=== PATIENT | female | born 1930 | race Caucasian/White ===

== ENCOUNTER 2018-06-03 14:57 | Inpatient (IN) | payer MEDICARE ==
[~2018-06-03] VITALS: Ht 165.1 cm; Wt 50.0 kg
[~2018-06-03 14:57] MED LIST: BUDE10.24 IH; CARV6.252 PO; CITA-278 PO; COU5T PO; DIGO250T PO; DONE5TAB3 PO; FLUT16SP2 NS; OXYB5TAB80 PO; SYN0.025T PO
[2018-06-03] MEDS ORDERED: normal saline 1000ML IV soln IVB ONE (15:30)
[2018-06-03 15:40] LABS: BASOPHILS % (AUTO) 0.3 % (0-1); EOSINOPHILS # (AUTO) 0.3 X10'3 (0-0.9); EOSINOPHILS % (AUTO) 2.7 % (0-6); HEMATOCRIT 42.7 % (35.0-45.0); HEMOGLOBIN 14.2 g/dl (12.0-16.0); LYMPHOCYTES # (AUTO) 1.2 X10'3 (1.1-4.8); LYMPHOCYTES % (AUTO) 12.5 % (21-51); MEAN CORPUSCULAR HEMOGLOBIN 33.1 PG (27.0-31.0); MEAN CORPUSCULAR HGB CONC 33.2 % (33.0-36.5); MEAN CORPUSCULAR VOLUME 99.5 FL (78-98); MEAN PLATELET VOLUME 9.2 FL (7.4-10.4); MONOCYTES # (AUTO) 1.3 X10'3 (0-0.9); MONOCYTES % (AUTO) 13.3 % (2-12); NEUTROPHILS # (AUTO) 6.7 X10'3 (1.8-7.7); NEUTROPHILS % (AUTO) 71.2 % (42-75); PLATELET COUNT 175 X10'3 (140-440); RED BLOOD COUNT 4.29 X10'6 (4.20-5.60); RED CELL DISTRIBUTION WIDTH 14.7 % (11.5-14.5); WHITE BLOOD COUNT 9.4 X10'3 (4.5-11.0)
[2018-06-03 16:01] LABS: INR 2.4 INR; PROTHROMBIN TIME 23.4 SECONDS (9.0-12.0)
[2018-06-03 16:08] LABS: ALANINE AMINOTRANSFERASE 20 U/L (12-78); ALBUMIN 3.2 G/DL (3.4-5.0); ALBUMIN/GLOBULIN RATIO 0.7 (1.1-1.5); ALKALINE PHOSPHATASE 74 IU/L (46-116); ANION GAP 8 (8-16); ASPARTATE AMINO TRANSFERASE 24 U/L (10-37); BLOOD UREA NITROGEN 8 MG/DL (7-18); BUN/CREATININE RATIO 8.9 (6.6-38.0); CALCIUM 9.3 MG/DL (8.5-10.1); CHLORIDE 101 MMOL/L (99-107); GLUCOSE 140 MG/DL (70-104); SODIUM 138 MMOL/L (135-145); TOTAL CARBON DIOXIDE 28.9 MMOL/L (24-32); TOTAL PROTEIN 7.8 G/DL (6.4-8.2); eGFR 59 ML/MIN
[2018-06-03 16:40] LABS: CLARITY,URINE CLOUDY (Clear); COLOR,URINE YELLOW (Yellow); GLUCOSE, URINE NEGATIVE (Neg); KETONES,URINE NEGATIVE (Neg); LEUKOCYTE ESTERASE ,URINE LARGE (Neg); NITRITES, URINE NEGATIVE (Neg); OCCULT BLOOD,URINE SMALL (Neg); PROTEIN,URINE 100 mg/dl (Neg); UROBILINOGEN,URINE 0.2 E.U/dL (0.2-1.0)
[2018-06-03 16:41] LABS: UA COLLECTION TYPE STRAIGHT CATH
[2018-06-03 16:52] LABS: WBC,URINE 50-100 /HPF (0-4)
[2018-06-03 16:53] LABS: BACTERIA,URINE 3+ /HPF (Neg); MUCUS STRANDS NONE SEEN /LPF (Neg); RBC,URINE 0-2 /HPF (0-2); SQUAMOUS EPITHELIAL CELL,UR NONE SEEN /LPF (FEW)
[2018-06-03] MEDS ORDERED: cephalexin 500mg capsule PO ONE (17:15)
[2018-06-03] MEDS ORDERED: CefTRIAXone/D5W-Rocephin 1gm 50 ML IV ONE (17:15)
[2018-06-03] MEDS: normal saline 1000ml 1,000 ML IV SCH ×2 (19:31→21:39)
[2018-06-03] MEDS ORDERED: DIGO125T78 PO (19:39)
[2018-06-03] MEDS ORDERED: COU2.5T PO (19:39)
[2018-06-03] MEDS ORDERED: DONE10TA7 PO (19:39)
[2018-06-03] MEDS ORDERED: OXYB5TAB11 PO (19:39)
[2018-06-03] MEDS ORDERED: MULT-38 PO (19:39)
[2018-06-03] MEDS ORDERED: temazepam 15mg capsule PO PRN (21:00)
[2018-06-03] MEDS ORDERED: normal saline 1000ml 1,000 ML IV SCH (21:42)
[2018-06-03] MEDS ORDERED: HYDROcodone/acetaminophen 10/325mg tab PO PRN (21:45)
[2018-06-03] MEDS ORDERED: acetaminophen 325mg tablet PO PRN ×2 (21:45)
[2018-06-03] MEDS ORDERED: diphenhydrAMINE 25mg capsule PO PRN (21:45)
[2018-06-03] MEDS ORDERED: diphenhydrAMINE 50 mg/ml inj IV PRN (21:45)
[2018-06-03] MEDS ORDERED: bisacodyl 10mg suppository rectal RC PRN (21:45)
[2018-06-03] MEDS ORDERED: ondansetron/PF 4mg/2ml inj IV PRN (21:45)
[2018-06-03] MEDS ORDERED: morphine 2 MG/ML inj. syringe IV PRN (21:45)
[2018-06-03] MEDS ORDERED: metoclopramide 5 mg/ml inj IV PRN (21:45)
[2018-06-03] MEDS ORDERED: acetaminophen 650mg rectal suppository RC PRN (21:45)
[2018-06-03] MEDS ORDERED: HYDROmorphone 1 mg/ml syringe IV PRN (21:45)
[2018-06-03] MEDS ORDERED: mag hydrox/Alum hydrox/simeth 30ml oral suspension PO PRN (21:45)
[2018-06-03] MEDS ORDERED: magnesium hydroxide 30ml (MOM) UD suspension PO PRN (21:45)
[2018-06-03 22:24] LABS: MAGNESIUM 1.9 MG/DL (1.5-2.4); PHOSPHORUS 2.7 MG/DL (2.3-4.5)
[2018-06-04 03:20] VITALS: BP 140/60
[2018-06-04 04:02] LABS: ALANINE AMINOTRANSFERASE 15 U/L (12-78); ALBUMIN/GLOBULIN RATIO 0.7 (1.1-1.5); ALKALINE PHOSPHATASE 80 IU/L (46-116); ANION GAP 10 (8-16); ASPARTATE AMINO TRANSFERASE 23 U/L (10-37); BILIRUBIN,TOTAL 1.2 MG/DL (0.1-1.0); BLOOD UREA NITROGEN 8 MG/DL (7-18); BUN/CREATININE RATIO 9.9 (6.6-38.0); CALCIUM 8.9 MG/DL (8.5-10.1); CHLORIDE 102 MMOL/L (99-107); CREATININE 0.81 MG/DL (0.40-0.90); GLUCOSE 112 MG/DL (70-104); POTASSIUM 3.9 MMOL/L (3.5-5.1); SODIUM 139 MMOL/L (135-145); TOTAL CARBON DIOXIDE 26.8 MMOL/L (24-32); TOTAL PROTEIN 7.3 G/DL (6.4-8.2); eGFR 67 ML/MIN
[2018-06-04 04:04] LABS: LIPASE 131 U/L (73-393)
[2018-06-04 04:31] LABS: BASOPHILS % (AUTO) 0.3 % (0-1); EOSINOPHILS # (AUTO) 0.2 X10'3 (0-0.9); EOSINOPHILS % (AUTO) 2.1 % (0-6); HEMATOCRIT 41.4 % (35.0-45.0); HEMOGLOBIN 13.8 g/dl (12.0-16.0); LYMPHOCYTES # (AUTO) 1.6 X10'3 (1.1-4.8); LYMPHOCYTES % (AUTO) 16.3 % (21-51); MEAN CORPUSCULAR HEMOGLOBIN 33.1 PG (27.0-31.0); MEAN CORPUSCULAR HGB CONC 33.3 % (33.0-36.5); MEAN CORPUSCULAR VOLUME 99.6 FL (78-98); MEAN PLATELET VOLUME 10.5 FL (7.4-10.4); MONOCYTES # (AUTO) 1.6 X10'3 (0-0.9); NEUTROPHILS # (AUTO) 6.4 X10'3 (1.8-7.7); NEUTROPHILS % (AUTO) 65.3 % (42-75); PLATELET COUNT 163 X10'3 (140-440); RED BLOOD COUNT 4.15 X10'6 (4.20-5.60); RED CELL DISTRIBUTION WIDTH 14.8 % (11.5-14.5); WHITE BLOOD COUNT 9.9 X10'3 (4.5-11.0)
[2018-06-04 06:00] VITALS: BP 138/58
[2018-06-04] MEDS: atorvastatin 20mg tablet PO SCH (07:51)
[2018-06-04] MEDS: docusate sod 100mg capsule PO SCH ×2 (07:51→20:18)
[2018-06-04] MEDS: CefTRIAXone/D5W-Rocephin 1gm 50 ML IV SCH ×2 (07:56→20:23)
[2018-06-04 10:00] VITALS: BP 121/57
[2018-06-04] MEDS ORDERED: SYN0.088T PO (10:49)
[2018-06-04] MEDS ORDERED: LEVO50TA8 PO (13:23)
[2018-06-04] MEDS: aspirin 325mg tablet, delayed-release (Ecotrin) PO SCH (14:56)
[2018-06-04] MEDS: Potassium Cl inj 20 MEQ in normal saline 1000ml 990 ML IV SCH (14:58)
[2018-06-04 15:58] LABS: INR 2.4 INR; PROTHROMBIN TIME 22.9 SECONDS (9.0-12.0)
[2018-06-04 18:00] VITALS: BP 138/75
[2018-06-04] MEDS ORDERED: warfarin 2.5mg tablet PO ONE (21:00)
[2018-06-04] MEDS ORDERED: famotidine 20mg tablet PO SCH (21:00)
[2018-06-04] MEDS ORDERED: Potassium Cl inj 20 MEQ in normal saline 1000ml 1,000 ML IV SCH (21:42)
[2018-06-04 22:00] VITALS: BP 138/78
[2018-06-05] MEDS: Potassium Cl inj 20 MEQ in normal saline 1000ml 990 ML IV SCH (04:36)
[2018-06-05 05:00] VITALS: BP 133/70
[2018-06-05 07:58] LABS: BASOPHILS % (AUTO) 0.4 % (0-1); EOSINOPHILS # (AUTO) 0.5 X10'3 (0-0.9); EOSINOPHILS % (AUTO) 4.5 % (0-6); HEMATOCRIT 37.7 % (35.0-45.0); HEMOGLOBIN 12.4 g/dl (12.0-16.0); LYMPHOCYTES # (AUTO) 1.3 X10'3 (1.1-4.8); LYMPHOCYTES % (AUTO) 12.9 % (21-51); MEAN CORPUSCULAR HGB CONC 32.9 % (33.0-36.5); MEAN CORPUSCULAR VOLUME 100.1 FL (78-98); MEAN PLATELET VOLUME 9.8 FL (7.4-10.4); MONOCYTES # (AUTO) 1.7 X10'3 (0-0.9); MONOCYTES % (AUTO) 16.3 % (2-12); NEUTROPHILS # (AUTO) 6.8 X10'3 (1.8-7.7); NEUTROPHILS % (AUTO) 65.9 % (42-75); PLATELET COUNT 143 X10'3 (140-440); RED BLOOD COUNT 3.76 X10'6 (4.20-5.60); RED CELL DISTRIBUTION WIDTH 14.5 % (11.5-14.5); WHITE BLOOD COUNT 10.3 X10'3 (4.5-11.0)
[2018-06-05 08:13] LABS: ALANINE AMINOTRANSFERASE 15 U/L (12-78); ALBUMIN 2.5 G/DL (3.4-5.0); ALBUMIN/GLOBULIN RATIO 0.6 (1.1-1.5); ALKALINE PHOSPHATASE 65 IU/L (46-116); ANION GAP 10 (8-16); ASPARTATE AMINO TRANSFERASE 20 U/L (10-37); BILIRUBIN,TOTAL 1.2 MG/DL (0.1-1.0); BLOOD UREA NITROGEN 6 MG/DL (7-18); BUN/CREATININE RATIO 10.7 (6.6-38.0); CALCIUM 8.4 MG/DL (8.5-10.1); CHLORIDE 106 MMOL/L (99-107); CHOL/HDL RATIO 2.4 (0.00-4.99); CHOLESTEROL 134 MG/DL (0-200); CREATININE 0.56 MG/DL (0.40-0.90); GLUCOSE 95 MG/DL (70-104); HDL CHOLESTEROL 56 MG/DL (35-60); LDL CHOLESTEROL 68 MG/DL (50-100); POTASSIUM 3.6 MMOL/L (3.5-5.1); SODIUM 139 MMOL/L (135-145); TOTAL CARBON DIOXIDE 23.4 MMOL/L (24-32); TOTAL PROTEIN 6.5 G/DL (6.4-8.2); TRIGLYCERIDES 53 MG/DL (20-135); eGFR > 90 ML/MIN
[2018-06-05 08:16] LABS: INR 2.4 INR; PROTHROMBIN TIME 23.6 SECONDS (9.0-12.0)
[2018-06-05] MEDS ORDERED: levoFLOXACIN-Levaquin 500mg/D5 100 ML IV SCH (08:55)
[2018-06-05] MEDS: docusate sod 100mg capsule PO SCH (09:07)
[2018-06-05] MEDS: atorvastatin 20mg tablet PO SCH (09:08)
[2018-06-05] MEDS: aspirin 325mg tablet, delayed-release (Ecotrin) PO SCH (09:08)
[2018-06-05] MEDS ORDERED: LEVO500T2 PO (11:38)
[2018-06-05] MEDS ORDERED: warfarin 2.5mg tablet PO ONE (21:00)
== END 2018-06-05 14:45 | disposition home health service (06) | DRG 690 ==
LOC: ER 14:57 → ED HOLD 21:42 → ORTHO 4S 06-04 03:10
PROVIDERS: ADMIT Family Medicine; ATTEND Internal Medicine
DX: N39.0 Urinary tract infection, site not specified (principal); B96.20 Unspecified Escherichia coli [E. coli] as the cause of diseases classified elsewhere; F03.90 Unspecified dementia, unspecified severity, without behavioral disturbance, psychotic disturbance, mood disturbance, and anxiety; I48.91 Unspecified atrial fibrillation; K80.20 Calculus of gallbladder without cholecystitis without obstruction; G89.29 Other chronic pain; R29.810 Facial weakness; I50.9 Heart failure, unspecified; J44.9 Chronic obstructive pulmonary disease, unspecified; Z79.01 Long term (current) use of anticoagulants; Z79.899 Other long term (current) drug therapy; Z87.891 Personal history of nicotine dependence
CPT/HCPCS: 36415; 70450; 70551; 71045; 74176; 80053; 80061; 80162; 81001; 83036; 83605; 83690; 83735; 83880; 84100; 84443; 84484; 85025; 85610; 87040; 87070; 87077; 87088; 87186; 93005; 93306; 93880; 96361; 96365; 97110; 97116; 97162; 99285; G0378; J0696; J1956; J3480; J7030

== ENCOUNTER 2018-06-12 09:44 | Inpatient (IN) | payer MEDICARE ==
[~2018-06-12] VITALS: Ht 167.6 cm; Wt 55.5 kg
[~2018-06-12 09:44] MED LIST changes: -BUDE10.24 IH; -CITA-278 PO; +COU2.5T PO; -COU5T PO; +DIGO125T78 PO; -DIGO250T PO; +DONE10TA7 PO; -DONE5TAB3 PO; +LEVO50TA8 PO; +MULT-38 PO; -OXYB5TAB80 PO; -SYN0.025T PO
[2018-06-12 10:58] LABS: ALANINE AMINOTRANSFERASE 24 U/L (12-78); ALBUMIN 2.6 G/DL (3.4-5.0); ALBUMIN/GLOBULIN RATIO 0.5 (1.1-1.5); ALKALINE PHOSPHATASE 80 IU/L (46-116); ANION GAP 8 (8-16); ASPARTATE AMINO TRANSFERASE 38 U/L (10-37); BILIRUBIN,TOTAL 1.1 MG/DL (0.1-1.0); BLOOD UREA NITROGEN 13 MG/DL (7-18); BUN/CREATININE RATIO 15.7 (6.6-38.0); CALCIUM 9.4 MG/DL (8.5-10.1); CHLORIDE 98 MMOL/L (99-107); CREATININE 0.83 MG/DL (0.40-0.90); GLUCOSE 127 MG/DL (70-104); SODIUM 135 MMOL/L (135-145); TOTAL CARBON DIOXIDE 29.2 MMOL/L (24-32); TOTAL PROTEIN 7.7 G/DL (6.4-8.2); eGFR 65 ML/MIN
[2018-06-12 11:00] LABS: BASOPHILS % (AUTO) 0 % (0-1); EOSINOPHILS # (AUTO) 0.1 X10'3 (0-0.9); EOSINOPHILS % (AUTO) 1.1 % (0-6); HEMATOCRIT 40.6 % (35.0-45.0); HEMOGLOBIN 13.4 g/dl (12.0-16.0); LYMPHOCYTES # (AUTO) 1.3 X10'3 (1.1-4.8); LYMPHOCYTES % (AUTO) 9.6 % (21-51); MEAN CORPUSCULAR HEMOGLOBIN 33.1 PG (27.0-31.0); MEAN CORPUSCULAR VOLUME 100.2 FL (78-98); MEAN PLATELET VOLUME 9.1 FL (7.4-10.4); MONOCYTES # (AUTO) 1.6 X10'3 (0-0.9); MONOCYTES % (AUTO) 12.5 % (2-12); NEUTROPHILS % (AUTO) 76.8 % (42-75); PLATELET COUNT 255 X10'3 (140-440); RED BLOOD COUNT 4.05 X10'6 (4.20-5.60); RED CELL DISTRIBUTION WIDTH 14.1 % (11.5-14.5); WHITE BLOOD COUNT 13.1 X10'3 (4.5-11.0)
[2018-06-12 11:01] LABS: PARTIAL THROMBOPLASTIN TIME 53 SECONDS (22-32); PROTHROMBIN TIME 56.8 SECONDS (9.0-12.0)
[2018-06-12 11:02] LABS: INR 6.2 INR
[2018-06-12 11:06] LABS: CLARITY,URINE SLIGHTLY CLOUDY (Clear); COLOR,URINE YELLOW (Yellow); GLUCOSE, URINE NEGATIVE (Neg); KETONES,URINE TRACE mg/dl (Neg); LEUKOCYTE ESTERASE ,URINE NEGATIVE (Neg); NITRITES, URINE NEGATIVE (Neg); OCCULT BLOOD,URINE TRACE-INTACT (Neg); PROTEIN,URINE TRACE mg/dl (Neg); UA COLLECTION TYPE STRAIGHT CATH
[2018-06-12 11:17] LABS: POTASSIUM 3.2 MMOL/L (3.5-5.1)
[2018-06-12 11:24] LABS: SQUAMOUS EPITHELIAL CELL,UR FEW /LPF (FEW)
[2018-06-12 11:25] LABS: MUCUS STRANDS MANY /LPF (Neg)
[2018-06-12 11:26] LABS: BACTERIA,URINE NONE SEEN /HPF (Neg); WBC CLUMPS,URINE FEW /HPF (NEGATIVE)
--- NOTE | 2018-06-12 11:59 | NUR ---
Pts krystina Pereira,
[2018-06-12] MEDS ORDERED: ondansetron/PF 4mg/2ml inj IV PRN (12:25)
[2018-06-12] MEDS ORDERED: docusate sod 100mg capsule PO PRN (12:25)
[2018-06-12] MEDS ORDERED: potassium Cl 40MEQ/NS 500ml 500 ML IV PRN ×2 (12:25)
[2018-06-12] MEDS ORDERED: magnesium 4gm in 100ml NS 100 ML IV PRN (12:25)
[2018-06-12] MEDS ORDERED: potassium Cl 20 mEq SR tablet PO PRN (12:25)
[2018-06-12] MEDS ORDERED: acetaminophen 325mg tablet PO PRN (12:25)
[2018-06-12] MEDS: normal saline 1000ml 1,000 ML IV SCH (12:53)
--- NOTE | 2018-06-12 13:19 | NUR ---
Pt reports no needs at this time.
--- NOTE | 2018-06-12 13:24 | NUR ---
Med rec obtained from pts daughter
[2018-06-12] MEDS: potassium Cl 20 mEq SR tablet PO PRN ×2 (14:16→20:48)
[2018-06-12 16:50] LABS: PROTHROMBIN TIME 60.8 SECONDS (9.0-12.0)
[2018-06-12 16:52] LABS: INR 6.6 INR
--- NOTE | 2018-06-12 18:21 | NUR ---
Problems reprioritized. Patient report given, questions answered & plan of care reviewed with ORVILLE Elizabeth.
--- NOTE | 2018-06-12 18:21 | NUR ---
Patient in room [facility]. I have received report from Kylie JACINTO and had the opportunity to ask questions and assume patient care.
[2018-06-12 20:00] VITALS: BP_SYST 138; BP_SYST 176; BP_DIAS 39; BP_DIAS 76
[2018-06-12 20:20] VITALS: BP_SYST 113; BP_SYST 128; BP_DIAS 64; BP_DIAS 75
[2018-06-12] MEDS: donepezil 5mg tablet PO SCH (20:46)
[2018-06-12] MEDS: carVEDilol 3.125mg tablet PO SCH (20:47)
[2018-06-12] MEDS ORDERED: non-formulary drug (Donepezil HCl (Aricept) 1 TAB) PO SCH (21:00)
--- NOTE | 2018-06-12 23:02 | NUR ---
Day shift unable to DART pt. pt is not a good historian and speaks a minimal amount. will let day shift know and DART when family is present. will continue to monitor pt.
[2018-06-13 00:30] VITALS: BP 118/56
[2018-06-13] MEDS: normal saline 1000ml 1,000 ML IV SCH (01:18)
[2018-06-13] MEDS: potassium Cl 20 mEq SR tablet PO PRN (01:22)
--- NOTE | 2018-06-13 06:30 | NUR ---
Problems reprioritized. Patient report given, questions answered & plan of care reviewed with Christie JACINTO.
--- NOTE | 2018-06-13 06:55 | NUR ---
Patient in room [facility]. I have received report from Clara JACINTO and had the opportunity to ask questions and assume patient care.
[2018-06-13 07:00] VITALS: BP 107/56
[2018-06-13] MEDS: carVEDilol 3.125mg tablet PO SCH ×2 (07:28→20:26)
[2018-06-13] MEDS: levoTHYROXINE 25mcg tablet PO SCH (07:28)
[2018-06-13 07:30] VITALS: BP 115/65
[2018-06-13] MEDS: digoxin 125mcg (0.125mg) tablet PO SCH (07:31)
[2018-06-13] MEDS ORDERED: non-formulary drug (Levothyroxine Sodium 1 TAB) PO SCH (08:00)
[2018-06-13] MEDS: K and/or MAG REPLACEMENT MC SCH (08:00)
[2018-06-13 09:30] LABS: BASOPHILS % (AUTO) 0.4 % (0-1); EOSINOPHILS # (AUTO) 0.3 X10'3 (0-0.9); EOSINOPHILS % (AUTO) 2.9 % (0-6); HEMATOCRIT 35.4 % (35.0-45.0); HEMOGLOBIN 11.8 g/dl (12.0-16.0); LYMPHOCYTES % (AUTO) 11.9 % (21-51); MEAN CORPUSCULAR HEMOGLOBIN 33.4 PG (27.0-31.0); MEAN CORPUSCULAR HGB CONC 33.3 % (33.0-36.5); MEAN CORPUSCULAR VOLUME 100.4 FL (78-98); MEAN PLATELET VOLUME 8.8 FL (7.4-10.4); MONOCYTES # (AUTO) 1.2 X10'3 (0-0.9); MONOCYTES % (AUTO) 13.4 % (2-12); NEUTROPHILS # (AUTO) 6.3 X10'3 (1.8-7.7); NEUTROPHILS % (AUTO) 71.4 % (42-75); PLATELET COUNT 263 X10'3 (140-440); RED BLOOD COUNT 3.53 X10'6 (4.20-5.60); RED CELL DISTRIBUTION WIDTH 13.8 % (11.5-14.5); WHITE BLOOD COUNT 8.9 X10'3 (4.5-11.0)
[2018-06-13 09:44] LABS: ALANINE AMINOTRANSFERASE 19 U/L (12-78); ALBUMIN 2.1 G/DL (3.4-5.0); ALBUMIN/GLOBULIN RATIO 0.5 (1.1-1.5); ALKALINE PHOSPHATASE 75 IU/L (46-116); ANION GAP 8 (8-16); ASPARTATE AMINO TRANSFERASE 28 U/L (10-37); BILIRUBIN,TOTAL 0.9 MG/DL (0.1-1.0); BLOOD UREA NITROGEN 10 MG/DL (7-18); BUN/CREATININE RATIO 14.5 (6.6-38.0); CALCIUM 8.2 MG/DL (8.5-10.1); CHLORIDE 103 MMOL/L (99-107); CREATININE 0.69 MG/DL (0.40-0.90); GLUCOSE 125 MG/DL (70-104); MAGNESIUM 1.8 MG/DL (1.5-2.4); POTASSIUM 3.5 MMOL/L (3.5-5.1); SODIUM 139 MMOL/L (135-145); TOTAL CARBON DIOXIDE 28.2 MMOL/L (24-32); TOTAL PROTEIN 6.3 G/DL (6.4-8.2); eGFR 81 ML/MIN
[2018-06-13 09:50] LABS: PROTHROMBIN TIME 64.3 SECONDS (9.0-12.0)
[2018-06-13 11:30] VITALS: BP 111/53
[2018-06-13] MEDS ORDERED: phytonadione 10 MG/1 ML amp PO ONE (11:45)
--- NOTE | 2018-06-13 18:40 | NUR ---
Patient in room [facility]. I have received report from Christie JACINTO and had the opportunity to ask questions and assume patient care.
--- NOTE | 2018-06-13 18:47 | NUR ---
spoke with the son and daughter , daughter would like patient to be placed in [place]. reported that patient is a feeder. Report given to Gia JACINTO
[2018-06-13 19:00] VITALS: BP 107/46
--- NOTE | 2018-06-13 19:45 | NUR ---
Patient is a feeder. Sat pt. up and fed some lasagne and green beans (after putting in top set of dentures). Patient ate very little but did drink 120cc of the lemonade drink. Addendum: 06/14/18 at 0034 by Alejandra Huerta RN Amended: Links added.
[2018-06-13] MEDS: donepezil 5mg tablet PO SCH (20:24)
[2018-06-14] VITALS: BP 118/57
--- NOTE | 2018-06-14 06:00 | NUR ---
Patient in room [facility]. I have received report from Alejandra JACINTO and had the opportunity to ask questions and assume patient care.
[2018-06-14 06:02] LABS: INR 1.8 INR; PROTHROMBIN TIME 17.8 SECONDS (9.0-12.0)
[2018-06-14 06:07] LABS: BASOPHILS % (AUTO) 0.4 % (0-1); EOSINOPHILS # (AUTO) 0.4 X10'3 (0-0.9); EOSINOPHILS % (AUTO) 4.7 % (0-6); HEMATOCRIT 33.7 % (35.0-45.0); HEMOGLOBIN 11.3 g/dl (12.0-16.0); LYMPHOCYTES # (AUTO) 1.5 X10'3 (1.1-4.8); LYMPHOCYTES % (AUTO) 16.6 % (21-51); MEAN CORPUSCULAR HEMOGLOBIN 33.4 PG (27.0-31.0); MEAN CORPUSCULAR HGB CONC 33.6 % (33.0-36.5); MEAN CORPUSCULAR VOLUME 99.5 FL (78-98); MEAN PLATELET VOLUME 9.3 FL (7.4-10.4); MONOCYTES # (AUTO) 1.2 X10'3 (0-0.9); MONOCYTES % (AUTO) 13.6 % (2-12); NEUTROPHILS # (AUTO) 5.8 X10'3 (1.8-7.7); NEUTROPHILS % (AUTO) 64.7 % (42-75); PLATELET COUNT 254 X10'3 (140-440); RED BLOOD COUNT 3.39 X10'6 (4.20-5.60); RED CELL DISTRIBUTION WIDTH 13.9 % (11.5-14.5)
[2018-06-14 06:13] LABS: ALANINE AMINOTRANSFERASE 20 U/L (12-78); ALBUMIN/GLOBULIN RATIO 0.5 (1.1-1.5); ALKALINE PHOSPHATASE 76 IU/L (46-116); ANION GAP 10 (8-16); ASPARTATE AMINO TRANSFERASE 39 U/L (10-37); BLOOD UREA NITROGEN 10 MG/DL (7-18); BUN/CREATININE RATIO 17.2 (6.6-38.0); CALCIUM 8.5 MG/DL (8.5-10.1); CHLORIDE 104 MMOL/L (99-107); CREATININE 0.58 MG/DL (0.40-0.90); GLUCOSE 99 MG/DL (70-104); POTASSIUM 3.3 MMOL/L (3.5-5.1); SODIUM 140 MMOL/L (135-145); TOTAL CARBON DIOXIDE 26.4 MMOL/L (24-32); eGFR > 90 ML/MIN
--- NOTE | 2018-06-14 06:48 | NUR ---
Problems reprioritized. Patient report given, questions answered & plan of care reviewed with Gloria Leon.
[2018-06-14 07:12] VITALS: BP 138/65
[2018-06-14] MEDS: K and/or MAG REPLACEMENT MC SCH (08:00)
[2018-06-14] MEDS: potassium Cl 20 mEq SR tablet PO PRN ×3 (08:33→17:51)
[2018-06-14] MEDS: digoxin 125mcg (0.125mg) tablet PO SCH (08:34)
[2018-06-14] MEDS: levoTHYROXINE 25mcg tablet PO SCH (08:35)
[2018-06-14] MEDS: carVEDilol 3.125mg tablet PO SCH ×2 (08:35→20:18)
[2018-06-14 11:29] VITALS: BP 105/43
--- NOTE | 2018-06-14 18:50 | NUR ---
Patient in room [facility]. I have received report from Gloria JACINTO and had the opportunity to ask questions and assume patient care.
--- NOTE | 2018-06-14 18:50 | NUR ---
Problems reprioritized. Patient report given, questions answered & plan of care reviewed with Alejandra JACINTO.
[2018-06-14 19:00] VITALS: BP 116/64
[2018-06-14] MEDS: acetaminophen 325mg tablet PO PRN (20:18)
[2018-06-14] MEDS: donepezil 5mg tablet PO SCH (20:19)
--- NOTE | 2018-06-14 20:37 | NUR ---
Devante PLACED AND URINE TO CANNISTER Addendum: 06/14/18 at 2041 by Alejandra Huerta RN Amended: Links added.
[2018-06-15] VITALS: BP 100/53
[2018-06-15 06:01] LABS: BASOPHILS % (AUTO) 0.5 % (0-1); EOSINOPHILS # (AUTO) 0.6 X10'3 (0-0.9); EOSINOPHILS % (AUTO) 7.2 % (0-6); HEMATOCRIT 34.2 % (35.0-45.0); HEMOGLOBIN 11.4 g/dl (12.0-16.0); LYMPHOCYTES # (AUTO) 1.6 X10'3 (1.1-4.8); LYMPHOCYTES % (AUTO) 18.4 % (21-51); MEAN CORPUSCULAR HEMOGLOBIN 33.2 PG (27.0-31.0); MEAN CORPUSCULAR HGB CONC 33.3 % (33.0-36.5); MEAN CORPUSCULAR VOLUME 99.8 FL (78-98); MEAN PLATELET VOLUME 9.1 FL (7.4-10.4); MONOCYTES % (AUTO) 11.8 % (2-12); NEUTROPHILS # (AUTO) 5.4 X10'3 (1.8-7.7); NEUTROPHILS % (AUTO) 62.1 % (42-75); PLATELET COUNT 300 X10'3 (140-440); RED BLOOD COUNT 3.43 X10'6 (4.20-5.60); RED CELL DISTRIBUTION WIDTH 13.8 % (11.5-14.5); WHITE BLOOD COUNT 8.6 X10'3 (4.5-11.0)
[2018-06-15 06:17] LABS: ALANINE AMINOTRANSFERASE 27 U/L (12-78); ALBUMIN/GLOBULIN RATIO 0.5 (1.1-1.5); ALKALINE PHOSPHATASE 81 IU/L (46-116); ANION GAP 6 (8-16); ASPARTATE AMINO TRANSFERASE 47 U/L (10-37); BILIRUBIN,TOTAL 0.5 MG/DL (0.1-1.0); BLOOD UREA NITROGEN 12 MG/DL (7-18); BUN/CREATININE RATIO 21.4 (6.6-38.0); CALCIUM 8.6 MG/DL (8.5-10.1); CHLORIDE 105 MMOL/L (99-107); CREATININE 0.56 MG/DL (0.40-0.90); GLUCOSE 100 MG/DL (70-104); MAGNESIUM 2.1 MG/DL (1.5-2.4); POTASSIUM 3.8 MMOL/L (3.5-5.1); SODIUM 140 MMOL/L (135-145); TOTAL CARBON DIOXIDE 28.7 MMOL/L (24-32); TOTAL PROTEIN 6.1 G/DL (6.4-8.2); eGFR > 90 ML/MIN
--- NOTE | 2018-06-15 06:30 | NUR ---
Patient in room [facility]. I have received report from ORVILLE Roberts and had the opportunity to ask questions and assume patient care.
--- NOTE | 2018-06-15 06:38 | NUR ---
Problems reprioritized. Patient report given, questions answered & plan of care reviewed with Sea Rn.Patient currently sleeping on her right side.
[2018-06-15 07:00] VITALS: BP 119/74
[2018-06-15] MEDS: K and/or MAG REPLACEMENT MC SCH (08:00)
[2018-06-15] MEDS: digoxin 125mcg (0.125mg) tablet PO SCH (08:05)
[2018-06-15] MEDS: levoTHYROXINE 25mcg tablet PO SCH (08:06)
[2018-06-15] MEDS: carVEDilol 3.125mg tablet PO SCH ×2 (08:06→20:13)
[2018-06-15 09:00] LABS: INR 1.4 INR; PROTHROMBIN TIME 13.6 SECONDS (9.0-12.0)
[2018-06-15 11:47] VITALS: BP 122/68
[2018-06-15 18:00] VITALS: BP 124/80
--- NOTE | 2018-06-15 18:30 | NUR ---
Problems reprioritized. Patient report given, questions answered & plan of care reviewed with ORVILLE Ma.
--- NOTE | 2018-06-15 18:30 | NUR ---
Patient in room [facility]. I have received report from Che JACINTO and had the opportunity to ask questions and assume patient care.
[2018-06-15] MEDS: donepezil 5mg tablet PO SCH (20:13)
[2018-06-15] MEDS: apixaban 2.5mg tablet PO SCH (20:13)
[2018-06-16] VITALS: BP 138/75
[2018-06-16 06:05] LABS: BASOPHILS # (AUTO) 0.1 X10'3 (0-0.2); BASOPHILS % (AUTO) 0.7 % (0-1); EOSINOPHILS # (AUTO) 0.7 X10'3 (0-0.9); EOSINOPHILS % (AUTO) 7.6 % (0-6); HEMOGLOBIN 12.4 g/dl (12.0-16.0); LYMPHOCYTES # (AUTO) 1.8 X10'3 (1.1-4.8); LYMPHOCYTES % (AUTO) 19.2 % (21-51); MEAN CORPUSCULAR HEMOGLOBIN 33.7 PG (27.0-31.0); MEAN CORPUSCULAR HGB CONC 33.6 % (33.0-36.5); MEAN CORPUSCULAR VOLUME 100.3 FL (78-98); MEAN PLATELET VOLUME 8.6 FL (7.4-10.4); MONOCYTES % (AUTO) 10.9 % (2-12); NEUTROPHILS # (AUTO) 5.7 X10'3 (1.8-7.7); NEUTROPHILS % (AUTO) 61.6 % (42-75); PLATELET COUNT 340 X10'3 (140-440); RED BLOOD COUNT 3.69 X10'6 (4.20-5.60); RED CELL DISTRIBUTION WIDTH 14.5 % (11.5-14.5); WHITE BLOOD COUNT 9.3 X10'3 (4.5-11.0)
--- NOTE | 2018-06-16 06:30 | NUR ---
Patient in room [facility]. I have received report from ORVILLE Ma and had the opportunity to ask questions and assume patient care.
--- NOTE | 2018-06-16 06:32 | NUR ---
Problems reprioritized. Patient report given, questions answered & plan of care reviewed with Che RN.
[2018-06-16 06:37] LABS: ALANINE AMINOTRANSFERASE 26 U/L (12-78); ALBUMIN 2.3 G/DL (3.4-5.0); ALBUMIN/GLOBULIN RATIO 0.5 (1.1-1.5); ALKALINE PHOSPHATASE 82 IU/L (46-116); ANION GAP 6 (8-16); ASPARTATE AMINO TRANSFERASE 41 U/L (10-37); BILIRUBIN,TOTAL 0.5 MG/DL (0.1-1.0); BLOOD UREA NITROGEN 11 MG/DL (7-18); CALCIUM 9.1 MG/DL (8.5-10.1); CHLORIDE 103 MMOL/L (99-107); CREATININE 0.61 MG/DL (0.40-0.90); GLUCOSE 92 MG/DL (70-104); MAGNESIUM 2.2 MG/DL (1.5-2.4); POTASSIUM 4.2 MMOL/L (3.5-5.1); SODIUM 140 MMOL/L (135-145); TOTAL CARBON DIOXIDE 30.7 MMOL/L (24-32); TOTAL PROTEIN 6.8 G/DL (6.4-8.2); eGFR > 90 ML/MIN
[2018-06-16 07:00] VITALS: BP 115/65
[2018-06-16] MEDS: carVEDilol 3.125mg tablet PO SCH ×2 (08:00→19:50)
[2018-06-16] MEDS: digoxin 125mcg (0.125mg) tablet PO SCH (08:00)
[2018-06-16] MEDS: K and/or MAG REPLACEMENT MC SCH (08:00)
[2018-06-16] MEDS: levoTHYROXINE 25mcg tablet PO SCH (09:35)
[2018-06-16] MEDS: apixaban 2.5mg tablet PO SCH ×2 (09:35→19:50)
[2018-06-16 11:30] VITALS: BP 126/50
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
[2018-06-16 18:00] VITALS: BP 134/64
--- NOTE | 2018-06-16 18:28 | NUR ---
Received report from primary care nurse Che RN. Assumed patient care. Patient is resting with relaxed and unlabored respirations on room air. In no apparent distress. Call light and items of frequent use within reach. Will continue to monitor for changes.
--- NOTE | 2018-06-16 18:30 | NUR ---
Problems reprioritized. Patient report given, questions answered & plan of care reviewed with ORVILLE Lopez.
[2018-06-16] MEDS: donepezil 5mg tablet PO SCH (19:50)
[2018-06-17] VITALS: BP 122/67
[2018-06-17 06:16] LABS: ALANINE AMINOTRANSFERASE 25 U/L (12-78); ALBUMIN 2.3 G/DL (3.4-5.0); ALBUMIN/GLOBULIN RATIO 0.5 (1.1-1.5); ALKALINE PHOSPHATASE 81 IU/L (46-116); ANION GAP 7 (8-16); ASPARTATE AMINO TRANSFERASE 36 U/L (10-37); BILIRUBIN,TOTAL 0.5 MG/DL (0.1-1.0); BLOOD UREA NITROGEN 8 MG/DL (7-18); BUN/CREATININE RATIO 12.3 (6.6-38.0); CALCIUM 8.6 MG/DL (8.5-10.1); CHLORIDE 103 MMOL/L (99-107); CREATININE 0.65 MG/DL (0.40-0.90); GLUCOSE 89 MG/DL (70-104); MAGNESIUM 2.1 MG/DL (1.5-2.4); POTASSIUM 4.1 MMOL/L (3.5-5.1); SODIUM 139 MMOL/L (135-145); TOTAL PROTEIN 6.8 G/DL (6.4-8.2); eGFR 86 ML/MIN
[2018-06-17 06:30] LABS: BASOPHILS # (AUTO) 0.1 X10'3 (0-0.2); BASOPHILS % (AUTO) 0.8 % (0-1); EOSINOPHILS # (AUTO) 0.7 X10'3 (0-0.9); EOSINOPHILS % (AUTO) 8.1 % (0-6); HEMATOCRIT 37.4 % (35.0-45.0); HEMOGLOBIN 12.5 g/dl (12.0-16.0); LYMPHOCYTES # (AUTO) 1.5 X10'3 (1.1-4.8); LYMPHOCYTES % (AUTO) 18.6 % (21-51); MEAN CORPUSCULAR HEMOGLOBIN 33.5 PG (27.0-31.0); MEAN CORPUSCULAR HGB CONC 33.3 % (33.0-36.5); MEAN CORPUSCULAR VOLUME 100.6 FL (78-98); MEAN PLATELET VOLUME 9.3 FL (7.4-10.4); MONOCYTES % (AUTO) 12.4 % (2-12); NEUTROPHILS # (AUTO) 4.9 X10'3 (1.8-7.7); NEUTROPHILS % (AUTO) 60.1 % (42-75); PLATELET COUNT 357 X10'3 (140-440); RED BLOOD COUNT 3.72 X10'6 (4.20-5.60); RED CELL DISTRIBUTION WIDTH 13.9 % (11.5-14.5); WHITE BLOOD COUNT 8.1 X10'3 (4.5-11.0)
--- NOTE | 2018-06-17 06:30 | NUR ---
Patient in room [facility]. I have received report from Jessica JACINTO and had the opportunity to ask questions and assume patient care.
[2018-06-17 07:12] VITALS: BP 128/59
[2018-06-17] MEDS: K and/or MAG REPLACEMENT MC SCH (08:00)
[2018-06-17] MEDS: carVEDilol 3.125mg tablet PO SCH ×2 (10:10→19:40)
[2018-06-17] MEDS: apixaban 2.5mg tablet PO SCH ×2 (10:11→19:40)
[2018-06-17] MEDS: digoxin 125mcg (0.125mg) tablet PO SCH (10:11)
[2018-06-17] MEDS: vitamin B comp w/Vit. C tab 1 TAB TABLET PO SCH (10:12)
[2018-06-17] MEDS: levoTHYROXINE 25mcg tablet PO SCH (10:12)
[2018-06-17 12:00] VITALS: BP 102/58
[2018-06-17 18:00] VITALS: BP 137/53
--- NOTE | 2018-06-17 19:01 | NUR ---
Problems reprioritized. Patient report given, questions answered & plan of care reviewed with Jessica JACINTO.
[2018-06-17] MEDS: donepezil 5mg tablet PO SCH (19:40)
[2018-06-18] VITALS: BP 109/56
--- NOTE | 2018-06-18 06:42 | NUR ---
Patient in room [facility]. I have received report from Jessica JACINTO and had the opportunity to ask questions and assume patient care.
[2018-06-18 07:00] VITALS: BP 125/65
[2018-06-18] MEDS: vitamin B comp w/Vit. C tab 1 TAB TABLET PO SCH (07:59)
[2018-06-18] MEDS: digoxin 125mcg (0.125mg) tablet PO SCH (07:59)
[2018-06-18] MEDS: apixaban 2.5mg tablet PO SCH ×2 (07:59→20:06)
[2018-06-18] MEDS: carVEDilol 3.125mg tablet PO SCH ×2 (07:59→20:06)
[2018-06-18] MEDS: levoTHYROXINE 25mcg tablet PO SCH (07:59)
[2018-06-18] MEDS: K and/or MAG REPLACEMENT MC SCH (08:00)
[2018-06-18 12:00] VITALS: BP 121/65
--- NOTE | 2018-06-18 18:17 | NUR ---
Patient in room [facility]. I have received report from Daniel JACINTO and had the opportunity to ask questions and assume patient care.
--- NOTE | 2018-06-18 18:17 | NUR ---
Problems reprioritized. Patient report given, questions answered & plan of care reviewed with Clara JACINTO.
[2018-06-18 20:00] VITALS: BP 120/69
[2018-06-18] MEDS: donepezil 5mg tablet PO SCH (20:06)
[2018-06-18 20:07] VITALS: BP 124/58
[2018-06-18 23:30] VITALS: BP 128/57
--- NOTE | 2018-06-19 06:23 | NUR ---
Patient in room [facility]. I have received report from migue mc and had the opportunity to ask questions and assume patient care.
--- NOTE | 2018-06-19 06:23 | NUR ---
Problems reprioritized. Patient report given, questions answered & plan of care reviewed with Yin JACINTO.
[2018-06-19] MEDS: K and/or MAG REPLACEMENT MC SCH (06:58)
[2018-06-19 07:00] VITALS: BP 139/67
[2018-06-19] MEDS: apixaban 2.5mg tablet PO SCH ×2 (08:50→20:28)
[2018-06-19] MEDS: carVEDilol 3.125mg tablet PO SCH ×2 (08:51→20:28)
[2018-06-19] MEDS: digoxin 125mcg (0.125mg) tablet PO SCH (08:51)
[2018-06-19] MEDS: vitamin B comp w/Vit. C tab 1 TAB TABLET PO SCH (08:51)
[2018-06-19] MEDS: levoTHYROXINE 25mcg tablet PO SCH (08:52)
--- NOTE | 2018-06-19 18:18 | NUR ---
Problems reprioritized. Patient report given, questions answered & plan of care reviewed with CARA JACINTO.
[2018-06-19] MEDS: lactose-reduced food (Ensure High Protein) 237ml bottle PO SCH (18:47)
[2018-06-19 18:50] VITALS: BP 130/52
[2018-06-19] MEDS: donepezil 5mg tablet PO SCH (20:29)
[2018-06-19 23:30] VITALS: BP 114/60
--- NOTE | 2018-06-20 06:13 | NUR ---
Problems reprioritized. Patient report given, questions answered & plan of care reviewed with CIERA. Addendum: 06/20/18 at 0613 by Josiah Mustafa RN Amended: Links added.
--- NOTE | 2018-06-20 06:51 | NUR ---
Patient in room [facility]. I have received report from ERASMO JACINTO and had the opportunity to ask questions and assume patient care.
[2018-06-20 07:05] VITALS: BP 119/58
[2018-06-20] MEDS: apixaban 2.5mg tablet PO SCH ×2 (08:00→21:03)
[2018-06-20] MEDS: K and/or MAG REPLACEMENT MC SCH (08:00)
[2018-06-20] MEDS: levoTHYROXINE 25mcg tablet PO SCH (08:00)
[2018-06-20] MEDS: digoxin 125mcg (0.125mg) tablet PO SCH (08:01)
[2018-06-20] MEDS: vitamin B comp w/Vit. C tab 1 TAB TABLET PO SCH (08:01)
[2018-06-20] MEDS: carVEDilol 3.125mg tablet PO SCH ×2 (08:09→20:00)
[2018-06-20] MEDS: lactose-reduced food (Ensure High Protein) 237ml bottle PO SCH ×3 (08:09→18:04)
[2018-06-20 11:11] VITALS: BP 99/53
--- NOTE | 2018-06-20 17:31 | NUR ---
Family present in room son stated to patient that he would not be cleaning up patient if she was incontinent
[2018-06-20] MEDS: sertraline 50mg tablet PO SCH (17:51)
[2018-06-20] MEDS: acetaminophen 325mg tablet PO PRN (17:52)
--- NOTE | 2018-06-20 18:49 | NUR ---
family heard to say to patient "if your incontinent at home i wont clean you up." casemanager paged doctor notified. son spoke with staff and wanted mother to be put on anti depressants. Patient commenced on Zoloft per Dr Gonsalez. Tylenol given for back pain. Family stating that they do not feel like they can look after mother as she is. Report given to cecelia JACINTO
[2018-06-20 19:30] VITALS: BP 104/37
[2018-06-20] MEDS: donepezil 5mg tablet PO SCH (21:04)
[2018-06-20 22:50] VITALS: BP 132/77
[2018-06-21 05:25] LABS: BASOPHILS # (AUTO) 0.2 X10'3 (0-0.2); EOSINOPHILS # (AUTO) 0.4 X10'3 (0-0.9); EOSINOPHILS % (AUTO) 4.2 % (0-6); HEMATOCRIT 35.4 % (35.0-45.0); HEMOGLOBIN 11.6 g/dl (12.0-16.0); LYMPHOCYTES # (AUTO) 1.8 X10'3 (1.1-4.8); LYMPHOCYTES % (AUTO) 19.9 % (21-51); MEAN CORPUSCULAR HEMOGLOBIN 33.1 PG (27.0-31.0); MEAN CORPUSCULAR HGB CONC 32.9 % (33.0-36.5); MEAN CORPUSCULAR VOLUME 100.6 FL (78-98); MEAN PLATELET VOLUME 8.7 FL (7.4-10.4); MONOCYTES # (AUTO) 1.3 X10'3 (0-0.9); NEUTROPHILS # (AUTO) 5.4 X10'3 (1.8-7.7); NEUTROPHILS % (AUTO) 59.9 % (42-75); PLATELET COUNT 348 X10'3 (140-440); RED BLOOD COUNT 3.52 X10'6 (4.20-5.60); RED CELL DISTRIBUTION WIDTH 14.2 % (11.5-14.5); WHITE BLOOD COUNT 9.1 X10'3 (4.5-11.0)
[2018-06-21 05:56] LABS: ALANINE AMINOTRANSFERASE 15 U/L (12-78); ALBUMIN 2.3 G/DL (3.4-5.0); ALBUMIN/GLOBULIN RATIO 0.5 (1.1-1.5); ALKALINE PHOSPHATASE 62 IU/L (46-116); ANION GAP 4 (8-16); ASPARTATE AMINO TRANSFERASE 30 U/L (10-37); BILIRUBIN,TOTAL 0.5 MG/DL (0.1-1.0); BLOOD UREA NITROGEN 14 MG/DL (7-18); BUN/CREATININE RATIO 17.1 (6.6-38.0); CALCIUM 8.3 MG/DL (8.5-10.1); CHLORIDE 103 MMOL/L (99-107); CREATININE 0.82 MG/DL (0.40-0.90); GLUCOSE 107 MG/DL (70-104); POTASSIUM 3.8 MMOL/L (3.5-5.1); SODIUM 136 MMOL/L (135-145); TOTAL CARBON DIOXIDE 29.2 MMOL/L (24-32); TOTAL PROTEIN 6.5 G/DL (6.4-8.2); eGFR 66 ML/MIN
--- NOTE | 2018-06-21 06:13 | NUR ---
Problems reprioritized. Patient report given, questions answered & plan of care reviewed with ORVILLE ALONZO. Addendum: 06/21/18 at 0613 by Freedom Anguiano RN Amended: Links added.
--- NOTE | 2018-06-21 07:02 | NUR ---
Patient in room [facility]. I have received report from JOCELYNE JACINTO and had the opportunity to ask questions and assume patient care.
[2018-06-21] MEDS: K and/or MAG REPLACEMENT MC SCH (07:17)
[2018-06-21 08:00] VITALS: BP 101/53
[2018-06-21] MEDS: lactose-reduced food (Ensure High Protein) 237ml bottle PO SCH ×3 (08:00→18:00)
[2018-06-21] MEDS: carVEDilol 3.125mg tablet PO SCH ×2 (08:31→20:15)
[2018-06-21] MEDS: apixaban 2.5mg tablet PO SCH ×2 (08:31→20:15)
[2018-06-21] MEDS: sertraline 50mg tablet PO SCH (08:31)
[2018-06-21] MEDS: vitamin B comp w/Vit. C tab 1 TAB TABLET PO SCH (08:32)
[2018-06-21] MEDS: digoxin 125mcg (0.125mg) tablet PO SCH (08:32)
[2018-06-21] MEDS: levoTHYROXINE 25mcg tablet PO SCH (09:38)
[2018-06-21 12:00] VITALS: BP 117/83
--- NOTE | 2018-06-21 15:14 | NUR ---
Reassessment: Pt continues on pureed diet with average 50% intake of meals and Ensure high protein likely meeting nutrient needs at this time. [facility] 06/19. CM working on safe d/c for pt. Will continue to follow. Rec. 1. Continue with pureed thin liquid diet. 2. Monitor for bowel care 3. Ensure High Protein chocolate TID 4. wt per rx Addendum: 06/21/18 at [address] Amended: Links added.
[2018-06-21] MEDS: acetaminophen 325mg tablet PO PRN (15:24)
--- NOTE | 2018-06-21 18:21 | NUR ---
Patient in room [facility]. I have received report from ORVILLE Ayala and had the opportunity to ask questions and assume patient care.
--- NOTE | 2018-06-21 18:41 | NUR ---
Problems reprioritized. Patient report given, questions answered & plan of care reviewed with Zeynep JACINTO.
[2018-06-21 20:00] VITALS: BP 106/67
[2018-06-21] MEDS: donepezil 5mg tablet PO SCH (20:15)
--- NOTE | 2018-06-21 20:31 | NUR ---
Got order from Dr. Ty to give mineral enema because patients family felt she was very uncomfortable due to being constipated. Upon going to give enema, it was noticed that patient had a small amount of bloody stool that needed to be cleaned up. Enema was not given.
[2018-06-22] VITALS: BP 111/63
--- NOTE | 2018-06-22 06:30 | NUR ---
Problems reprioritized. Patient report given, questions answered & plan of care reviewed with ORVILLE Ayala.
--- NOTE | 2018-06-22 07:01 | NUR ---
Patient in room [facility]. I have received report from MARY ANN JACINTO and had the opportunity to ask questions and assume patient care.
[2018-06-22 08:00] VITALS: BP 109/64
[2018-06-22] MEDS: lactose-reduced food (Ensure High Protein) 237ml bottle PO SCH ×3 (08:00→18:00)
[2018-06-22] MEDS: K and/or MAG REPLACEMENT MC SCH (08:39)
[2018-06-22] MEDS: digoxin 125mcg (0.125mg) tablet PO SCH (08:42)
[2018-06-22] MEDS: apixaban 2.5mg tablet PO SCH ×2 (08:42→20:28)
[2018-06-22] MEDS: carVEDilol 3.125mg tablet PO SCH ×2 (08:42→20:28)
[2018-06-22] MEDS: vitamin B comp w/Vit. C tab 1 TAB TABLET PO SCH (08:42)
[2018-06-22] MEDS: sertraline 50mg tablet PO SCH (08:43)
[2018-06-22] MEDS: levoTHYROXINE 25mcg tablet PO SCH (08:43)
[2018-06-22 17:11] VITALS: BP 121/71
[2018-06-22 18:00] VITALS: BP 132/61
--- NOTE | 2018-06-22 18:28 | NUR ---
Problems reprioritized. Patient report given, questions answered & plan of care reviewed with Dexter JACINTO.
--- NOTE | 2018-06-22 18:29 | NUR ---
Patient in room [facility]. I have received report from ORVILLE Ayala and had the opportunity to ask questions and assume patient care.
[2018-06-22] MEDS: donepezil 5mg tablet PO SCH (20:28)
[2018-06-23] VITALS: BP 106/60
--- NOTE | 2018-06-23 06:44 | NUR ---
Problems reprioritized. Patient report given, questions answered & plan of care reviewed with ORVILLE Pop.
--- NOTE | 2018-06-23 06:57 | NUR ---
Patient in room [facility]. I have received report from GEORGIE JACINTO and had the opportunity to ask questions and assume patient care.
[2018-06-23 07:00] VITALS: BP 104/56
[2018-06-23] MEDS: sertraline 50mg tablet PO SCH (08:54)
[2018-06-23] MEDS: vitamin B comp w/Vit. C tab 1 TAB TABLET PO SCH (08:54)
[2018-06-23] MEDS: carVEDilol 3.125mg tablet PO SCH (08:55)
[2018-06-23] MEDS: digoxin 125mcg (0.125mg) tablet PO SCH (08:55)
[2018-06-23] MEDS: apixaban 2.5mg tablet PO SCH (08:56)
[2018-06-23] MEDS: levoTHYROXINE 25mcg tablet PO SCH (08:56)
[2018-06-23] MEDS: lactose-reduced food (Ensure High Protein) 237ml bottle PO SCH (08:57)
[2018-06-23 11:00] VITALS: BP 102/58
== END 2018-06-23 15:58 | DRG 640 ==
LOC: ER 09:44 → ED HOLD 12:22 → SUR 3N 16:19
PROVIDERS: ADMIT Family Medicine; ATTEND Hospitalist
DX: E87.6 Hypokalemia (principal); E43 Unspecified severe protein-calorie malnutrition; Z68.1 Body mass index [BMI] 19.9 or less, adult; I48.91 Unspecified atrial fibrillation; F02.80 Dementia in other diseases classified elsewhere, unspecified severity, without behavioral disturbance, psychotic disturbance, mood disturbance, and anxiety; F32.9 Major depressive disorder, single episode, unspecified; F41.9 Anxiety disorder, unspecified; G30.9 Alzheimer's disease, unspecified; R62.7 Adult failure to thrive; R79.1 Abnormal coagulation profile; G89.29 Other chronic pain; T45.515A Adverse effect of anticoagulants, initial encounter; K52.9 Noninfective gastroenteritis and colitis, unspecified; Z79.890 Hormone replacement therapy; Z79.01 Long term (current) use of anticoagulants; Z79.899 Other long term (current) drug therapy; Z87.891 Personal history of nicotine dependence; Y92.89 Other specified places as the place of occurrence of the external cause; Z75.1 Person awaiting admission to adequate facility elsewhere
CPT/HCPCS: 36415; 70450; 71045; 80053; 80162; 81001; 83735; 83880; 84443; 84484; 85025; 85610; 85730; 87070; 87088; 92616; 93005; 97110; 97161; 97530; 99285; G0378; J3430; J7030